=== PATIENT | female | born 1950 | race Two or more races ===

== ENCOUNTER 2025-03-11 06:29 | Day surgery (SDC) | payer OTHER ==
[2025-03-03 11:00] VITALS: BP 134/80
[~2025-03-11] VITALS: Ht 152.4 cm; Wt 67.6 kg
[~2025-03-11 06:29] MED LIST: DILT-XR180 MG PO; FOSINOPRIL-HCT1 EAC1 PO; LEVO-T50 MCG PO; LIPITOR40 M1 PO
== END 2025-03-11 15:00 | disposition home or self-care (01) ==
LOC: CIR.AMB 06:29
PROVIDERS: ATTEND Internal Medicine
DX: D37.1 Neoplasm of uncertain behavior of stomach (principal); K31.89 Other diseases of stomach and duodenum; K86.2 Cyst of pancreas